=== PATIENT | female | born 1985 ===

== ENCOUNTER → 2018-12-03 | Outpatient (REF) | payer OTHER ==
[~2018-12-03] MED LIST: METR-1 PO; PRED20TA6 PO
== END ==
LOC: ZZSENDIN 17:28
PROVIDERS: ATTEND Family Medicine
DX: R41.3 Other amnesia (principal)
CPT/HCPCS: 87088

== ENCOUNTER → 2019-01-01 | Outpatient (CLI) | payer OTHER ==
[~2019-01-01] MED LIST changes: +GADOBENATE 529MG/1ML 15ML VIAL IVP ONE
--- NOTE | 2019-01-01 10:07 | RADIOLOGY IMAGING REPORT ---
FACILITY: [facility] PATIENT NAME: Brayan Richardson : 1985 MR: [id number] V: [id number] EXAM DATE: ORDERING PHYSICIAN: OLIVIA ANDERSON TECHNOLOGIST: Location: [facility] - [place], [place] Patient: Brayan Richardson : 1985 Visit/Account:[id number] Date of Sevice: 01/01/2019 Examination: MR brain without and with contrast History: Short-term memory loss, headache Comparison: None Technique: Multiplane MR imaging was performed through the brain without and with contrast. 15 cc IV multihance was administered. Findings: Diffusion: None Ventricles: Normal Midline shift: None Extraxial fluid: None Midline craniocervical structures: Normal Parenchyma: Normal Enhancement: No pathologic enhancement Vascular flow voids: Normal Orbits and paranasal sinuses: Moderate left maxillary sinus mucosal thickening. Other: No significant additional finding. Impression: 1. Moderate left maxillary sinus mucosal thickening. 2. Otherwise normal brain MR without and with contrast. Report Dictated By: Bob Sunshine MD at 01/01/2019 9:53 AM Report E-Signed By: Bob Sunshine MD at 01/01/2019 9:58 AM WSN:[id number]
== END ==
LOC: MRI 04:00
PROVIDERS: ATTEND Family Medicine
DX: R51 Headache (principal)
CPT/HCPCS: 70553; A9577